=== PATIENT | female | born 1945 | race Caucasian/White ===

== ENCOUNTER → 2016-08-31 | Outpatient (CLI) | payer MEDICARE, OTHER ==
[~2016-08-31] MED LIST: ALDACTONE25 MG PO; ASPIRIN LO-DOSE81 MG PO; BACTRIM DS1 TAB PO; CALTRATE 600 WI1 TAB PO; COENZYME Q10100 MG PO; CORDARONE,PACE200 MG PO; COREG 3.1253.125 MG PO; COREG6.25 MG PO; COUMADIN ** IA5 MG PO; COUMADIN **IA7.5 MG PO; COZAAR25 MG PO; GLUCOPHAGE XR500 MG PO; GLUCOTROL5 MG PO; HUMIBID LA (MU600 MG PO; ICAPS TABLET1 EACH PO; IMODIUM2 MG PO; KLOR-CON M2020 MEQ PO; LASIX40 MG PO; LIPITOR80 MG PO; LOPRESSOR25 MG PO; MAG-OX-400(241400 MG PO; NEXIUM40 MG PO; OXYGEN M-15 INH; OXYGEN M-15 NOSE; SOTALOL160 MG PO; TAMIFLU75 MG PO; TYLENOL ARTHRI650 MG PO; TYLENOL325 MG PO; VITAMIN D-32000 UNI1 PO
== END | disposition disaster alternative care site (69) ==
LOC: LGSMG 14:49
DX: D64.9 Anemia, unspecified (principal)